=== PATIENT | female | born 1970 | race Caucasian/White ===

== ENCOUNTER → 2020-12-05 | Outpatient (CLI) | payer OTHER ==
[2020-12-05 10:40] LABS: microscopic required? YES; urine erythrocyte 1+ (NEGATIVE)
[2020-12-05 10:45] LABS: BASOPHIL % 0.7 % (0.2-1.3); PLATELET COUNT 371 x10^3mcL (179-408)
[2020-12-05 10:50] LABS: RED CELL DISTRIBUTION WIDTH 15.7 % (12.3-17.7)
[2020-12-05 10:56] LABS: ALBUMIN 3.5 g/dL (3.4-5.0); ALKALINE PHOSPHATASE 55 U/L (46-116); ALT/SGPT 27 U/L (14-59); AST/SGOT 22 U/L (15-37); BILIRUBIN TOTAL 0.4 mg/dL (0.20-1.00); CALCIUM 9.3 mg/dL (8.5-10.1); CARBON DIOXIDE 25.3 mmol/L (21-32); CHLORIDE SERUM 105 mmol/L (98-107); CHOLESTEROL 175 mg/dL (<200); CHOLESTEROL/HDL RATIO 3.9; CREATININE SERUM 0.6 mg/dL (0.6-1.0); GFR1 > 60 mL/min; GLUCOSE SERUM 85 mg/dL (74-106); HDL CHOLESTEROL 45 mg/dL (40-60); POTASSIUM SERUM 3.8 mmol/L (3.5-5.1); SODIUM SERUM 140 mmol/L (136-145); TOTAL PROTEIN, SERUM 7.2 g/dL (6.4-8.2); TRIGLYCERIDES 73 mg/dL (<150)
[2020-12-07 09:06] LABS: RHEUMATOID ARTHRITIS FACTOR <10.0 IU/mL (0.0-13.9)
== END | disposition home or self-care (01) ==
LOC: US 10:03
PROC: BW4GZZZ Ultrasonography of Pelvic Region (ICD-10-PCS; principal; 2020-12-05)
PROC: BH02ZZZ Plain Radiography of Bilateral Breasts (ICD-10-PCS; 2020-12-05)
DX: Z12.31 Encounter for screening mammogram for malignant neoplasm of breast (principal); M25.511 Pain in right shoulder; N93.9 Abnormal uterine and vaginal bleeding, unspecified; Z80.49 Family history of malignant neoplasm of other genital organs
CPT/HCPCS: 77067; 86200; 86431